=== PATIENT | male | born 1990 | race Caucasian/White ===

== ENCOUNTER 2024-04-16 06:25 | Emergency (ER) | payer SELFPAY | END 2024-04-16 08:00 | disposition home or self-care (01) | LOC: ERS 06:25 | DX: J02.8 Acute pharyngitis due to other specified organisms (principal) | CPT/HCPCS: 87081; 87428; 87430; 99282 ==

== ENCOUNTER 2025-01-31 08:25 | Emergency (ER) | payer SELFPAY ==
[2025-01-31] MEDS ORDERED: Rabies Vaccine Human 2.5 UNITS VIAL ONE (10:45)
[2025-01-31] MEDS ORDERED: Rabies Immune Globulin/PF 300 UNITS/ML VIAL ONE (10:45)
[2025-01-31] MEDS ORDERED: Bacitracin 1 PK ONE (10:57)
[2025-01-31] MEDS ORDERED: Amoxicillin/Potassium Clav 875 MG TAB ONE (11:24)
== END 2025-01-31 11:27 | disposition home or self-care (01) ==
LOC: ERS 08:25
DX: S91.052A Open bite, left ankle, initial encounter (principal); F17.210 Nicotine dependence, cigarettes, uncomplicated; W54.0XXA Bitten by dog, initial encounter; Z23 Encounter for immunization
CPT/HCPCS: 90375; 90471; 90675

== ENCOUNTER → 2025-02-07 | Day surgery (SDC) | payer OTHER, SELFPAY ==
[~2025-02-07] MED LIST: Rabies Vaccine Human 2.5 UNITS VIAL ONE
== END ==
LOC: ER/OP 05:04
PROVIDERS: ATTEND Licensed Practical Nurse
DX: Z29.14 Encounter for prophylactic rabies immune globulin (principal)
CPT/HCPCS: 90675